=== PATIENT | female | born 1960 | race Caucasian/White ===

== ENCOUNTER → 2017-09-15 | Outpatient (CLI) | payer OTHER ==
[~2017-09-15] MED LIST: ASPIRIN325 PO; CHANTIX1 MG PO; DIPHENHIST50 MG PO; FISH OIL 1,001000 M2 PO; LASIX 20 MG TAB20 MG PO; LISINOPRIL20 MG PO; METFORMIN HCL500 MG PO; ORTHO-TABS1 EACH PO; PRANDIN2 MG PO; SYNTHROID50 MCG PO; ZOCOR20 MG PO
== END ==
LOC: M.RAD 08:54
DX: M41.86 Other forms of scoliosis, lumbar region (principal)

== ENCOUNTER → 2017-10-28 | Day surgery (SDC) | payer OTHER ==
--- NOTE | ~2017-10-28 | PROC ---
[address] [address] PROCEDURE REPORT Name: ALONDRA LOPEZ Room: [facility] M.R.#: [id number] Admission: 10/28/17 Attend Phys: Kenny Smith MD Discharge: Date of : 60 Report #: [id number] THIS REPORT FOR: //name// For GI report, please see the Provation report in Perceptive 7 content. By: 0657Medical Records Staff [facility] /HOLDEN
[2017-10-28 12:48] LABS: HEMOGLOBIN 13.5 gm/dL (12.0-15.0); MCH 31.3 pg (26.0-34.0); MCHC 33.7 g/dL (28.0-37.0); MCV 92.7 fL (80.0-100.0); MPV 8.7 fl. (7.2-11.1); RBC 4.31 mil/uL (4.20-5.00); RDW-CV 14.1 % (10.5-14.5); WBC 9.1 thou/uL (4.0-11.0)
[2017-10-28 12:56] LABS: CALCIUM 9.8 mg/dL (8.5-10.1); CREATININE 1.1 mg/dL (0.6-1.3); POTASSIUM 4.6 mmol/L (3.5-5.1)
[2017-10-28 13:01] LABS: ALBUMIN 3.9 g/dL (3.4-5.0); TOTAL BILIRUBIN 0.4 mg/dL (<0.1-1.0); TOTAL PROTEIN 7.7 g/dL (6.4-8.2)
--- NOTE | 2017-10-28 16:39 | EKG ---
[place] [address] ELECTROCARDIOGRAM REPORT Name: LOPEZALONDRA Room: [facility]#: [id number] Admission: 10/28/17 Attend Phys: Kenny Smith MD Discharge: Date of : 60 Report #: [id number] THIS REPORT FOR: //name// [facility] Test Date: 2017-10-28 Test Time: 13:14:43 Pat Name: ALONDRA LOPEZ Department: Room: Gender: F Commission Associate: : 1960 Requested By: Kenny Smith Order Number: [id number] Sondra RAMACHANDRAN: Anirudh Guzman Measurements Intervals [place] Rate: 70 P: 9 SC: 141 QRS: 53 QRSD: 133 T: 11 QT: 406 QTc: 439 Interpretive Statements Sinus rhythm Nonspecific intraventricular conduction delay Anterior precordial st-t changes, consider ischemia No previous ECG available for comparison Electronically Signed On 10-28-2017 16:38:52 CDT by Anirudh Guzman [email or web address] <ELECTRONICALLY SIGNED> By: Anirudh Guzman MD, [facility] 10/28/17 1638 1314 13 Anirudh Guzman MD, FACC /EPI
== END | disposition home or self-care (01) ==
LOC: M.SUR 10:00
PROVIDERS: Internal Medicine Gastroenterology
DX: Z12.11 Encounter for screening for malignant neoplasm of colon (principal); D12.4 Benign neoplasm of descending colon; K64.8 Other hemorrhoids; K64.4 Residual hemorrhoidal skin tags; I11.0 Hypertensive heart disease with heart failure; I50.9 Heart failure, unspecified; E78.5 Hyperlipidemia, unspecified; J44.9 Chronic obstructive pulmonary disease, unspecified; E11.9 Type 2 diabetes mellitus without complications; E03.9 Hypothyroidism, unspecified; E66.09 Other obesity due to excess calories; Z79.899 Other long term (current) drug therapy; Z90.710 Acquired absence of both cervix and uterus; Z98.890 Other specified postprocedural states; Z87.891 Personal history of nicotine dependence; Z88.8 Allergy status to other drugs, medicaments and biological substances

== ENCOUNTER → 2017-12-31 | Outpatient (CLI) | payer OTHER | LOC: M.RAD 08:55 | DX: Z12.31 Encounter for screening mammogram for malignant neoplasm of breast (principal) ==

== ENCOUNTER → 2018-06-09 | Outpatient (CLI) | payer OTHER ==
--- NOTE | 2018-06-09 15:55 | 2DMMODE ---
[place] [address] 2 D/M-MODE ECHOCARDIOGRAM Name: ALONDAR LOPEZ Room: [facility]#: [id number] Admission: 06/09/18 Attend Phys: Lan Dunlap, Discharge: Date of : 60 Date of Service: 06/09/18 1555 Report #: [id number] THIS REPORT FOR: //name// APPROVED REPORT Study performed: 06/09/2018 10:05:07 EXAM: Comprehensive 2D, Doppler, and color-flow Echocardiogram Patient Location: Out-Patient Status: routine BSA: 2.15 HR: 92 bpm BP: 120/80 mmHg Other Information Study Quality: Fair Technically limited study due to lung disease. Indications CAD 2D Dimensions IVSd: 15.61 (7-11mm) LVOT Diam: 20.80 (18-24mm) LVDd: 44.71 mm PWd: 12.13 (7-11mm) Ascending Ao: 30.52 (22-36mm) LVDs: 26.39 (25-40mm) Aortic Root: 36.33 mm Volumes Left Atrial Volume (Systole) LA ESV Index: 10.30 mL/m2 Aortic Valve AoV Peak Kalia.: 1.67 m/s AO Peak Gr.: 11.22 mmHg LVOT Max P.33 mmHg AO Mean Gr.: 6.40 mmHg LVOT Mean P.98 mmHg LVOT Max V: 1.04 m/s AO V2 VTI: 28.09 cm LVOT Mean V: 0.63 m/s RANDI (VTI): 2.31 cm2 LVOT V1 VTI: 19.11 cm Mitral Valve E/A Ratio: 0.76 MV Decel. Time: 263.14 ms MV E Max Kalia.: 0.56 m/[place] [address] 2 D/M-MODE ECHOCARDIOGRAM Name: ALONDRA LOPEZ Room: [facility]#: [id number] Admission: 06/09/18 Attend Phys: Lan Dunlap, Discharge: Date of : 60 Date of Service: 06/09/18 1555 Report #: [id number] PHT: 76.31 ms MVA (PHT): 2.88 cm2 TDI E/Lateral E': 5.09 E/Medial E': 5.60 Medial E' Kalia.: 0.10 m/s Lateral E' Kalia.: 0.11 m/s Pulmonary Valve PV Peak Kalia.: 0.88 m/s PV Peak Gr.: 3.13 mmHg Left Ventricle The left ventricle is normal size. There is normal LV segmental wall motion. Mild concentric left ventricular hypertrophy. Left ventricular systolic function is normal. The left ventricular ejection fraction is within the normal range. LVEF is 55-60%. Grade I - abnormal relaxation pattern. Right Ventricle The right ventricle is normal size. The right ventricular systolic function is normal. Atria The left atrium size is normal. The right atrium size is normal. Aortic Valve Aortic valve is mildly calcified. No aortic regurgitation is present. There is no aortic valvular stenosis. Mitral Valve The mitral valve is normal in structure. There is no mitral valve regurgitation noted. No evidence of mitral valve stenosis. Tricuspid Valve The tricuspid valve is normal in structure. Mild tricuspid regurgitation. Pulmonic Valve Pulmonic valve is not well visualized. There is no pulmonic valvular regurgitation. Great Vessels The aortic root is normal in size. IVC is normal in size and collapses >50% [place] [address] 2 D/M-MODE ECHOCARDIOGRAM Name: ALONDRA LOPEZ Room: [facility]#: [id number] Admission: 06/09/18 Attend Phys: Lan Dunlap, Discharge: Date of : 60 Date of Service: 06/09/18 1555 Report #: [id number] Pericardium There is no pericardial effusion. <Conclusion> Mild concentric left ventricular hypertrophy. LVEF is 55-60%. Aortic valve is mildly calcified. <ELECTRONICALLY SIGNED> By: Chuckie Bentley MD, [facility] 06/09/18 1555 1555 1555 Chuckei Bentley MD, [facility] /INF
== END ==
LOC: M.CRD 09:27
DX: I07.1 Rheumatic tricuspid insufficiency (principal); I25.110 Atherosclerotic heart disease of native coronary artery with unstable angina pectoris; I35.8 Other nonrheumatic aortic valve disorders

== ENCOUNTER → 2018-12-07 | Outpatient (CLI) | payer OTHER ==
[~2018-12-07] VITALS: Ht 162.6 cm; Wt 113.4 kg
[2018-12-07] VITALS (7 sets, daily range): BP systolic 112–128; BP diastolic 52–85
[~2018-12-07] MED LIST changes: +BASAGLAR K100 UNIT/1 SUBQ; +FLOVENT HFA 4444 MCG INH; +LIPITOR 20 MG T20 M1 PO; +NORCO 7.5-3251 EACH PO; +ONGLYZA5 MG PO; +ZOCOR 20 MG TAB20 M1 PO
[2018-12-07 13:30] LABS: HEMATOCRIT 38.3 % (37.0-47.0); HEMOGLOBIN 12.6 gm/dL (12.0-15.0); MCH 30.1 pg (26.0-34.0); MCV 91.1 fL (80.0-100.0); MPV 9.2 fl. (7.2-11.1); RBC 4.2 mil/uL (4.20-5.00); RDW-CV 14.6 % (10.5-14.5); WBC 9.5 thou/uL (4.0-11.0)
[2018-12-07 13:41] LABS: ANION GAP 9 mmol/L (7-16); APTT 27.4 Seconds (25.0-31.3); BUN 15 mg/dL (7-18); CALCIUM 9.7 mg/dL (8.5-10.1); CHLORIDE 103 mmol/L (98-107); CO2 29 mmol/L (21-32); GLUCOSE 116 mg/dL (70-99); POTASSIUM 4.4 mmol/L (3.5-5.1); SODIUM 141 mmol/L (136-145)
[2018-12-07 13:45] LABS: ALBUMIN 3.8 g/dL (3.4-5.0); ALKALINE PHOSPHATASE 52 U/L (46-116); CHOLESTEROL 146 mg/dL (<200); HDL CHOLESTEROL 43 mg/dL (>40); LDL CHOLESTEROL 83 mg/dL (<100); SGOT 12 U/L (15-37); SGPT 27 U/L (30-65); TC:HDL 3.4 Ratio (Not establshd); TOTAL BILIRUBIN 0.4 mg/dL (<0.1-1.0); TOTAL PROTEIN 7.6 g/dL (6.4-8.2); TRIGLYCERIDE 100 mg/dL (<150); VLDL 20 mg/dL (<40)
[2018-12-07 13:47] LABS: SERUM ASSESSMENT Clear
--- NOTE | 2018-12-07 15:55 | EKG ---
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: : 1960 Requested By: Lan Dunlap Order Number: [id number] Reading MD: Lan Dunlap Measurements Intervals [place] Rate: 71 P: 12 [place]: 142 QRS: 75 QRSD: 113 T: -70 QT: 388 QTc: 422 Interpretive Statements Sinus rhythm Repol abnrm, prob ischemia, anterolateral lds Compared to ECG 10/28/2017 13:14:43 Early repolarization now present ST (T wave) deviation no longer present Possible ischemia still present Electronically Signed On 12-07-2018 15:55:23 CDT by Lan Dunlap [email or web address] <ELECTRONICALLY SIGNED> By: Lan Dunlap MD, [facility] 12/07/18 1555 1336 1336 Lan Dunlap MD, [facility] /EPI
--- NOTE | 2018-12-09 06:46 | CARD ---
[facility] [address] [place] [address] CARDIAC CATH REPORT Name: ALONDRA LOPEZ Luis Room: [facility] VELIA DemondAlex#: [id number] Admission: 12/07/18 Attend Phys: Lan Dunlap MD Discharge: Date of : 60 Report #: [id number] THIS REPORT FOR: //name// APPROVED REPORT Study performed: 12/07/2018 14:55:26 Patient Details Patient Status: Out-Patient Room #: Event Personnel MD BRITTANY KRISHNAMUTRHY RN TINE PARKS, RN MONITOR NAYAN KO SCRUB Procedures Performed Art Access-R femoral artery, Left Heart Cath w/or w/o Coronaries Procedure Narrative The patient was brought electively to the Cardiac Catheterization Laboratory and was prepped and draped in a sterile manner. The right femoral was infiltrated with subcutaneous anesthesia. The right femoral accessed via ultrasound guidance. A 6 fr sheath was inserted into the right femoral artery. Coronary angiography was performed using coronary diagnostic catheters. The right coronary system was accessed and visualized with a Diagnostic catheter. The left coronary system was accessed and visualized with a Diagnostic catheter. The left ventricle was accessed and visualized with a Diagnostic catheter. Left ventricular/Aortic Valve gradient assessed via catheter pullback. Hemostasis was obtained with manual pressure following sheath removal without any complications. Intraoperative Conscious Sedation Sedation start time: 1520 Case end Time: 153 Fentanyl 25.0 mcg Versed 1.0 mg Diagnostic Cath Left Main Normal. Bifurcates into the LAD and circumflex arteries. LAD Normal in the proximal mid and distal portion. Diagonal 1 Moderate in caliber and normal. Diagonal 2 Small in caliber and normal. [facility] [address] [place] [address] CARDIAC CATH REPORT Name: ALONDRA LOPEZ Room: [facility]#: [id number] Admission: 12/07/18 Attend Phys: Lan Dunlap MD Discharge: Date of : 60 Report #: [id number] Circumflex Normal in the proximal mid and distal portion. OM1 Single large obtuse marginal that is normal. Right Coronary Mildly calcified proximally with 10% narrowing. Normal the mid and distal portion. R PDA Normal and large in size. RPLV Normal and moderate in caliber. Left Ventriculography The left ventricle is normal in size with normal contractility. The left ventricular ejection fraction is estimated to be 55-60%. Left ventricular wall motion abnormalities are not present. Hemodynamics The left ventricular pressure is 128/11 mmHg with a mean of mmHg. The left ventricular end diastolic pressure is 19 mmHg. There was no gradient across the aortic valve upon pullback. Conclusion 1. Minimal nonocclusive coronary artery disease as outlined above. 2. Mildly elevated left ventricular end-diastolic pressure. 3. Normal left ventricular systolic function. Recommendations 1. Continue medical management and aggressive risk factor modification. <ELECTRONICALLY SIGNED> By: Lan Dunlap MD, FACC 12/09/1845 4 Michaeemile Dunlap MD, FAC /INF
== END | disposition home or self-care (01) ==
LOC: M.CL 11-22 09:00
PROVIDERS: Internal Medicine Cardiovascular Disease
DX: I25.10 Atherosclerotic heart disease of native coronary artery without angina pectoris (principal); I11.0 Hypertensive heart disease with heart failure; I50.1 Left ventricular failure, unspecified; G47.30 Sleep apnea, unspecified; E10.9 Type 1 diabetes mellitus without complications; Z98.890 Other specified postprocedural states; Z90.710 Acquired absence of both cervix and uterus; Z79.899 Other long term (current) drug therapy; Z88.8 Allergy status to other drugs, medicaments and biological substances; Z79.82 Long term (current) use of aspirin; Z79.4 Long term (current) use of insulin

== ENCOUNTER → 2019-03-16 | Outpatient (CLI) | payer OTHER | LOC: M.ULTRA 03-10 11:59 | DX: R16.0 Hepatomegaly, not elsewhere classified (principal); K76.0 Fatty (change of) liver, not elsewhere classified ==

== ENCOUNTER → 2019-07-05 | Outpatient (CLI) | payer MEDICARE ==
[2019-07-05 11:47] LABS: ALBUMIN 3.4 g/dL (3.4-5.0); CALCIUM 9.3 mg/dL (8.5-10.1); CREATININE 1.4 mg/dL (0.6-1.3); POTASSIUM 4.4 mmol/L (3.5-5.1); TOTAL BILIRUBIN 0.6 mg/dL (<0.1-1.0); TOTAL PROTEIN 7.5 g/dL (6.4-8.2)
== END ==
LOC: M.LAB 11:08
PROVIDERS: Registered Nurse
DX: I11.0 Hypertensive heart disease with heart failure (principal); I50.32 Chronic diastolic (congestive) heart failure

== ENCOUNTER 2019-07-14 09:16 | Inpatient (IN) | payer MEDICARE ==
[~2019-07-14] VITALS: Ht 162.6 cm; Wt 126.1 kg
--- NOTE | ~2019-07-14 | CON ---
[address] [address] CONSULTATION Name: ALONDRA LOPEZ Room: [address] M.R.#: [id number] Admission: 07/14/19 Attend Phys: Hi Persaud MD Discharge: Date of : 60 Report #: [id number] THIS REPORT FOR: //name// cc: No Summers Linda J. DO ~ THIS REPORT FOR: //name// CC: Hi Summers DATE OF SERVICE: 07/14/2019 CARDIOLOGY CONSULTATION HISTORY OF PRESENT ILLNESS: I was asked by Dr. Persaud to see this 59-year-old white female in cardiology consultation for evaluation and treatment of possible paroxysmal supraventricular tachycardia as well as a mild troponin elevation. This lady has severe COPD, is O2 dependent. She has a history of insulin-dependent diabetes mellitus, hyperlipidemia, chronic diastolic congestive heart failure, pulmonary hypertension, likely secondary to her underlying pulmonary disease. She has obstructive sleep apnea, hypothyroidism and morbid obesity. She had a normal cardiac catheterization in last December. She had a normal nuclear stress test last in 04/2018. She had an echocardiogram in 06/2018 that showed normal left ventricular systolic function with grade 1 diastolic dysfunction. There was no aortic regurgitation, no mitral regurgitation, mild tricuspid regurgitation. No pulmonic regurgitation. There was mild concentric left ventricular hypertrophy. Pulmonary pressure was not recorded on the study. I believe she does have mild pulmonary hypertension; however, it is undoubtedly due to her COPD. She has recently been switched from furosemide to torsemide. She has been taking 60 of Lasix daily and more recently she has been taking 40 of torsemide daily. She also previously been taking like 20 mg of lisinopril daily that was stopped recently because she was hypotensive. She has been taking none apparently since 07/05/2019. She saw her cardiology nurse practitioner, Pam Gibson. She, for reasons that were unclear, decided to take lisinopril 10 mg today when she was not supposed to take any and she went to the Emergency Room with hypotension and tachycardia. She tells me that her heart rate went as high as 240 on an O2 sat device. Sometimes it was 200. It is not clear that it went up suddenly and ended suddenly however, apparently went up slowly and then ended slowly when she got ice on her neck on the way into the hospital. The strips from EMS were not saved. Her EKG today shows sinus tachycardia with a rate of 122. She has incomplete right bundle branch block and possible right ventricular hypertrophy. She has a rightward axis. There are nonspecific ST-T abnormalities, especially in the inferior and V1 through V4. Her troponins were mildly elevated. She did not have any chest pain. I do not know whether or not she has chronic elevation of troponin or not, it is a possibility. Her troponin was initially 0.10 and [facility] [address] [place] [address] CONSULTATION Name: ALONDRA LOPEZ Room: [address] IN [facility].#: [id number] Admission: 07/14/19 Attend Phys: Hi Persaud MD Discharge: Date of : 60 Report #: [id number] then subsequently 0.12. I am not sure a third one has been checked, but I will get it checked. Of note, however, is that her estimated GFR is 33 and initial CPK was 34. Her creatinine on admission was 1.6 with a BUN of 22. Blood sugar was 349. PAST MEDICAL HISTORY: As per the history of present illness. ALLERGIES: SHE IS ALLERGIC TO AMBIEN, WHICH SHE SAYS MAKES HER CRAZY. HOME MEDICATIONS: Include aspirin 325 mg daily, calcium with multiple vitamins daily, Benadryl 50 mg at bedtime, fish oil 1000 mg daily, Flovent b.i.d., Bevespi Aerosphere inhaler daily, NovoLog insulin in a titrated dose before meals, it goes in an insulin pump, Atrovent inhalations q. 6 hours, levothyroxine 50 mcg daily, MiraLax 17 grams daily, Prandin 2 mg t.i.d., Onglyza 5 mg daily, simvastatin 20 mg daily and torsemide 40 mg daily. SOCIAL HISTORY: She is single. This lady is not smoking. She is a former smoker. Does not drink or use illegal drugs. REVIEW OF SYSTEMS: Positive with regard to the respiratory system including cough, sputum production, pneumonia, emphysema, wheezing, asthma. She does have palpitations as well. Otherwise, review of systems is negative for some 30 different complaints in 14 different system categories. Please see review of system form for details and negatives in review of systems. Systems reviewed include central nervous system, general, respiratory, cardiovascular, endocrine, gastrointestinal, genitourinary, hematologic, lymphatic, allergic, immunologic, psychiatric, musculoskeletal, skin, eyes, ears, nose, mouth, and throat. Please see review of system form for details and negatives in review of systems. FAMILY HISTORY: Unremarkable. PHYSICAL EXAMINATION: GENERAL: She presents as a well-developed, well-nourished, obese white female, in no acute distress. She is 5 feet 4 inches tall, weighs 265 pounds. VITAL SIGNS: Pulse was 86 with a blood pressure of 184/85, respirations 18 and regular. She was afebrile with a temperature of 97.9. HEENT: Her head was atraumatic. Eyes clear. NECK: Supple. There is no jugular venous distention or hepatojugular reflux. Thyroid is not enlarged. There is no adenopathy. SKIN: Warm and dry. Mucous membranes are moist. LUNGS: Clear to auscultation and percussion. HEART: Revealed normal first and second heart sound. There is soft S4. There is no S3. There are no murmurs, rubs, thrills, heaves or gallops. PMI is nondisplaced. ABDOMEN: Soft, flat and nontender. No palpable masses, no organomegaly. EXTREMITIES: Reveal no cyanosis, clubbing or edema. NEUROLOGIC: The patient mentated normally, talked normally, [place] [address] CONSULTATION Name: ALONDRA LOPEZ Room: [address] [place] [facility]#: [id number] Admission: 07/14/19 Attend Phys: Hi Persaud MD Discharge: Date of : 60 Report #: [id number] extremities normally. LABORATORY DATA: Chest x-ray showed moderate cardiomegaly, some pulmonary venous prominence, mild perihilar interstitial prominence. NT-proBNP was 8066. IMPRESSION: 1. Possible paroxysmal supraventricular tachycardia versus paroxysmal atrial fibrillation versus sinus tachycardia. 2. Mild elevation of troponin, probably not coronary in origin, possibly due to her renal dysfunction and significant illness. 3. Chronic obstructive pulmonary disease, O2 dependent. 4. Insulin-dependent diabetes mellitus, out of control. 5. Hyperlipidemia. 6. Chronic diastolic heart failure. 7. Pulmonary hypertension. 8. Hypothyroidism. 9. Obstructive sleep apnea. 10. Morbid obesity. RECOMMENDATION: I would simply monitor her. She will need an outpatient monitor. I will be careful not to over hydrate her. I would withhold antihypertensives. This lady does not need lisinopril. At some point, I would resume her torsemide once it is clear that she is no longer dehydrated as I think she may have been dehydrated. Thank you very much for asking me to see this patient. If there are any questions, please feel free to contact me. By: [id number]. Johnie Sexton MD, FACC /nt
[~2019-07-14 09:16] MED LIST changes: -LASIX 20 MG TAB20 MG PO; +TORSEMIDE20 MG PO
[2019-07-14 09:20] VITALS: BP 115/83
[2019-07-14] MEDS ORDERED: NOVOLOG100 UNIT/1 SUBQ (09:35)
[2019-07-14] MEDS ORDERED: SIMVASTATIN80 MG PO (09:37)
[2019-07-14 09:38] LABS: ABSOLUTE BASOPHILS 0.2 thou/uL (0.0-0.2); ABSOLUTE EOSINOPHILS 0.3 thou/uL (0.0-0.7); ABSOLUTE MONOCYTES 0.6 thou/uL (0.0-1.2); ABSOLUTE NEUTROPHILS 9.4 thou/uL (1.6-8.1); BASOPHILS 1.3 %; EOSINOPHILS 2.3 %; HEMATOCRIT 43.1 % (37.0-47.0); HEMOGLOBIN 13.9 gm/dL (12.0-15.0); LYMPHOCYTES 16.2 %; MCHC 32.3 g/dL (28.0-37.0); MCV 89.7 fL (80.0-100.0); MONOCYTES 5.2 %; NUCLEATED RBCS 0 /100WBC; PLATELET COUNT* 251 thou/uL (150-400); RDW-CV 15.5 % (10.5-14.5); WBC 12.5 thou/uL (4.0-11.0)
[2019-07-14] MEDS ORDERED: BEVESPI AEROS10.7 GM INH (09:39)
[2019-07-14] MEDS ORDERED: MIRALAX119 GM PO (09:39)
[2019-07-14] MEDS ORDERED: IPRATROPIU0.2 MG/1 M INH (09:39)
[2019-07-14 09:46] LABS: CALCIUM 9.1 mg/dL (8.5-10.1); CREATININE 1.6 mg/dL (0.6-1.3); POTASSIUM 4.6 mmol/L (3.5-5.1)
[2019-07-14 09:57] LABS: ALBUMIN 3.4 g/dL (3.4-5.0); MAGNESIUM 1.9 mg/dL (1.8-2.4); TOTAL BILIRUBIN 0.9 mg/dL (<0.1-1.0); TOTAL PROTEIN 7.6 g/dL (6.4-8.2)
[2019-07-14 14:42] VITALS: BP 84/45
[2019-07-14 19:50] VITALS: BP 84/46
[2019-07-15 00:33] VITALS: BP 98/64
[2019-07-15 04:29] VITALS: BP 92/57
--- NOTE | 2019-07-15 06:13 | NUR ---
ASSUMED CARE OF PATIENT AT APPROX 1930. ALERT AND ORIENTED X4. ASSESSMENT COMPLETED AND CHARTED. VSS ON 8 LITERS. PATIENT WEARS HOME CPAP AT NIGHT WITH 02. NO COMPLAINTS OF PAIN OR DIZZINESS THIS SHIFT. BLOOD PRESSURES STILL SOFT BUT IMPROVING. FLUIDS INFUSED ORDERED. PATIENT UP AND SLEEPING IN CHAIR OVERNIGHT. UP WITH ASSIST AND CALLS OUT APPROPRIATELY. CALL LIGHT IS WITHIN REACH. HOURLY ROUNDS COMPLETED. WILL CONTINUE WITH PLAN OF CARE.
[2019-07-15 08:00] VITALS: BP 94/60
[2019-07-15 09:25] LABS: ABSOLUTE BASOPHILS 0.1 thou/uL (0.0-0.2); ABSOLUTE EOSINOPHILS 0.3 thou/uL (0.0-0.7); ABSOLUTE LYMPHOCYTES 1.6 thou/uL (0.8-5.3); ABSOLUTE MONOCYTES 0.5 thou/uL (0.0-1.2); ABSOLUTE NEUTROPHILS 5.4 thou/uL (1.6-8.1); EOSINOPHILS 4.1 %; HEMATOCRIT 36.4 % (37.0-47.0); LYMPHOCYTES 20.6 %; MCHC 32.9 g/dL (28.0-37.0); MCV 88.1 fL (80.0-100.0); MONOCYTES 6.4 %; MPV 9.7 fl. (7.2-11.1); NUCLEATED RBCS 0 /100WBC; PLATELET COUNT* 183 thou/uL (150-400); POLYS 67.9 %; RBC 4.13 mil/uL (4.20-5.00); RDW-CV 15.3 % (10.5-14.5)
[2019-07-15 09:39] LABS: CALCIUM 8.5 mg/dL (8.5-10.1); CREATININE 1.2 mg/dL (0.6-1.3); POTASSIUM 3.7 mmol/L (3.5-5.1)
[2019-07-15 12:00] VITALS: BP 76/48
--- NOTE | 2019-07-15 14:10 | NUR ---
Pt is A&O. Resides at home with her mom and brother. Independent. Pt wears home o2 and has a cpap through [facility]. No other DME. No hx of HH or SNF. Goal is home at [place], no needs anticipated. Following.
[2019-07-15 16:01] VITALS: BP 86/52
--- NOTE | 2019-07-15 19:00 | NUR ---
ASSUMED PT CARE AT 0730. ASSESSMENT COMPLETED CHARTED. ABLE TO MAKE NEEDS KNOWN. UP AD JIMBO TO RESTROOM. 8L O2. NO C/O PAIN OR DISCOMFORT. CALL LIGHT WITHIN REACH. WILL CONTINUE TO MONITOR.
[2019-07-15 19:20] VITALS: BP 97/65
[2019-07-16] VITALS: BP 108/76
--- NOTE | 2019-07-16 03:21 | NUR ---
ASSUMED CARE OF PT AT 1900. PT IS ALERT AND ORIENTED. VSS. PERRLA. NO COMPLAINTS OF PAIN. PT IS IN SINUS RYTHM ON THE TELEMETRY. PT IS RESTING COMFORTABLY IN BED. RESPIRATIONS ARE EVEN AND NONLABORED. WILL CONTINUE TO MONITOR PT.
[2019-07-16 03:57] VITALS: BP 100/74
[2019-07-16 09:02] VITALS: BP 100/74
[2019-07-16 12:10] VITALS: BP 101/74
[2019-07-16 16:48] VITALS: BP 96/63
--- NOTE | 2019-07-16 18:44 | NUR ---
PT HAS HAD NO C/O PAIN NOR SOA T/O ROUNDING. VSS ON 8L NC. SR ON MONITOR. PT IS STEADY WITH SBA. FALL PRECAUTIONS IN PLACE. CLWR
[2019-07-16 19:40] VITALS: BP 106/64
[2019-07-17] VITALS: BP 107/72
--- NOTE | 2019-07-17 03:13 | NUR ---
ASSUMED CARE OF PT AT 1900. PT IS ALERT AND OREINTED. VSS. PERRLA. NO COMPLAINTS OF PAIN. PT IS ON CPAP AND 8 LITERS OF O2. PT IS IN SINUS RYTHM ON THE TELEMETRY. PT IS RESTING COMFORTABLY IN BED. RESPIRATIONS ARE EVEN AND NONLABORED. WILL CONTINUE TO MONITOR PT.
[2019-07-17 03:59] VITALS: BP 111/92
[2019-07-17 08:00] VITALS: BP 100/68
[2019-07-17] MEDS ORDERED: TORSEMIDE20 MG PO (08:28)
[2019-07-17] MEDS ORDERED: FLECAINIDE ACET50 M1 PO (08:30)
--- NOTE | 2019-07-17 11:54 | NUR ---
PT IS RESTING IN CHAIR WITH CALL LIGHT IN REACH.VSS ON 8L NC. PT DISCHARGED TO HOME IN STABLE CONDITION. TAKEN BY STAFF IN TO FAMILY VEHICLE.
--- NOTE | 2019-07-20 13:44 | EKG ---
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: : 1960 Requested By: Jacob Andrade Order Number: [id number] Reading MD: Chuckie Bentley Measurements Intervals [place] Rate: 88 P: 45 NM: 176 QRS: 84 QRSD: 117 T: 265 QT: 379 QTc: 459 Interpretive Statements Sinus rhythm Incomplete right bundle branch block Repol abnrm suggests ischemia, diffuse leads Compared to ECG 07/14/2019 09:20:10 Sinus tachycardia no longer present Electronically Signed On 07-15-2019 10:46:00 SENIOR SALES ENGINEER by Chuckie Bentley [email or web address] <ELECTRONICALLY SIGNED> By: Chuckie Bentley MD, [facility] 07/15/19 1046 9 9 Chuckie Bentley MD, [facility] /EPI
--- NOTE | 2019-07-20 13:44 | EKG ---
[place] [address] ELECTROCARDIOGRAM REPORT Name: ROXIE LOPEZEVANS Smith Room: [address] IN 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: BLADIMIR : 1960 Requested By: Pam Gibson Order Number: [id number] Reading MD: Chuckie Bentley Measurements Intervals [place] Rate: 92 P: 28 NE: 184 QRS: 95 QRSD: 98 T: -60 QT: 348 QTc: 431 Interpretive Statements Sinus rhythm Probable left atrial enlargement Borderline right axis deviation Abnormal R-wave progression, early transition Repol abnrm suggests ischemia, diffuse leads ST depression V1-V3, suggest recording posterior leads Compared to ECG 07/15/2019 06:20 Possible ischemia still present Electronically Signed On 2-8-2020 13:35:04 POULTRY PICKER by Chuckie Bentley [email or web address] <ELECTRONICALLY SIGNED> By: Chuckie Bentley MD, [facility] 07/16/19 1335 9 08 Chuckie Bentley MD, [facility] /EPI
--- NOTE | 2019-07-20 13:54 | EKG ---
[place] [address] ELECTROCARDIOGRAM REPORT Name: ROXIE LOPEZEVANS Smith Room: [address] IN [facility]#: [id number] Admission: 07/14/19 Attend Phys: Hi Persaud, Discharge: 07/17/19 Date of : 60 Date of Service: 07/14/19919 Report #: [id number] THIS REPORT FOR: cc: No Summers Linda J. DO Biggs, F. 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: KENDRICK : 1960 Requested By: Constantino Manning Order Number: [id number] MD: Johnie Sexton Measurements Intervals [place] Rate: 122 P: 64 [place]: 167 QRS: 103 QRSD: 103 T: -61 QT: 296 QTc: 422 Interpretive Statements Sinus tachycardia Probable RVH w/ secondary repol abnormality Compared to ECG 12/07/2018 13:36:48 Sinus rhythm no longer present Possible ischemia no longer present Electronically Signed On 07-14-2019 14:32:40 VERIFYING MACHINE OPERATOR by Johnie Sexton [email or web address] <ELECTRONICALLY SIGNED> By: Bradley Sexton MD, [facility] 07/14/19 1432 9 9 Bradley Sexton MD, [facility] /EPI
== END 2019-07-17 12:15 | disposition home or self-care (01) | DRG 682 ==
LOC: M.ERS 09:16 → M.TBA-ER 10:28 → M.2W 10:28
PROVIDERS: Emergency Medicine Emergency Medical Services; ADMIT Internal Medicine
DX: N17.9 Acute kidney failure, unspecified (principal); J96.21 Acute and chronic respiratory failure with hypoxia; I47.1 Supraventricular tachycardia; I50.32 Chronic diastolic (congestive) heart failure; Z68.42 Body mass index [BMI] 45.0-49.9, adult; E66.2 Morbid (severe) obesity with alveolar hypoventilation; I50.9 Heart failure, unspecified; J44.9 Chronic obstructive pulmonary disease, unspecified; E11.9 Type 2 diabetes mellitus without complications; I11.0 Hypertensive heart disease with heart failure; E78.00 Pure hypercholesterolemia, unspecified; E78.5 Hyperlipidemia, unspecified; I27.20 Pulmonary hypertension, unspecified; E03.9 Hypothyroidism, unspecified; I95.2 Hypotension due to drugs; T50.905A Adverse effect of unspecified drugs, medicaments and biological substances, initial encounter; Z90.710 Acquired absence of both cervix and uterus; Z79.82 Long term (current) use of aspirin; Z79.84 Long term (current) use of oral hypoglycemic drugs; Z79.899 Other long term (current) drug therapy; Z88.8 Allergy status to other drugs, medicaments and biological substances; Y92.89 Other specified places as the place of occurrence of the external cause; Z99.81 Dependence on supplemental oxygen

== ENCOUNTER → 2020-04-03 | Outpatient (CLI) | payer MEDICARE, MEDICAID ==
[~2020-04-03] MED LIST changes: +BEVESPI AEROS10.7 GM INH; +FLECAINIDE ACET50 M1 PO; +IPRATROPIU0.2 MG/1 M INH; +MIRALAX119 GM PO; +NOVOLOG100 UNIT/1 SUBQ; +SIMVASTATIN80 MG PO
[2020-04-03 15:26] LABS: CREATININE 1.3 mg/dL (0.6-1.3)
== END ==
LOC: M.CT 14:00
PROVIDERS: ATTEND Family Medicine
DX: K40.90 Unilateral inguinal hernia, without obstruction or gangrene, not specified as recurrent (principal); R14.0 Abdominal distension (gaseous); I25.10 Atherosclerotic heart disease of native coronary artery without angina pectoris; I70.0 Atherosclerosis of aorta; R18.8 Other ascites; I51.7 Cardiomegaly